=== PATIENT | male | born 1965 | race Hispanic/Latino ===

== ENCOUNTER 2016-11-10 21:38 | Emergency (ER) | payer MEDICARE, MEDICAID ==
[~2016-11-10] VITALS: Ht 170.2 cm; Wt 100.0 kg
[~2016-11-10 21:38] MED LIST: AMT50T PO; ASPI325T32 PO; ATEN25TA PO; INSU100I13 SUBQ; INSU100I18 SUBQ; LISI-567 PO; OMEP20TA86 PO
[2016-11-10 21:41] VITALS: BP 154/87; PULSE 74; RESP 16; O2SAT 95
--- NOTE | 2016-11-10 22:02 | DRSVH ---
PROCEDURE: X-RAY CHEST ONE VIEW, PORTABLE ([id number]) INDICATIONS: Syncope TECHNIQUE: One view of the chest was acquired. COMPARISON: [facility], CR, XR CHEST 1VW (PORTABLE), 04/14/2016, 23:15. FINDINGS: Surgical changes and devices: None. Lungs and pleura: No pleural effusions or pneumothorax. Lungs are clear. Mediastinum: Mediastinal contours appear normal. Heart size is normal. Bones and chest wall: No suspicious bony lesions. Overlying soft tissues appear unremarkable. IMPRESSION: No acute process. Dictated by: Perri Figueroa M.D. on 11/10/2016 at 22:00 Approved by: Perri Figueroa M.D. on 11/10/2016 at 22:00
--- NOTE | 2016-11-10 22:20 | ED.REPORT ---
HPI-General Illness Date of Service Nov 10, 2016 ED Provider: Dr. Elian Henry D.O. A 51 year old male with a medical history including hypertension, diabetes, CVAx2, left arm injury with residual weakness, and CAD s/p cardiac stenting presents to the ED via EMS accompanied by his family after a syncopal episode just prior to arrival. The patient was arguing vigorously with his when the episode occurred. EMS found the patient with a BP of 210/108 and a blood glucose level of 300. He currently reports left arm pain, left hand pain, nausea , and headache. Family states that he landed on his left shoulder and left hand. The patient denies chest pain, vomiting, diarrhea, or other symptoms. The patient speaks Swedish and his son was translating. Nursing Notes Stated Complaint: DIFFICULTY BREATHING Chief Complaint: General Complaint Nursing Notes Reviewed: Yes Allergies: Coded Allergies: No Known Allergies (Verified Allergy, Unknown, 11/10/16) Scheduled Amitriptyline (Amitriptyline) 50 Mg Tab 50 MG PO HS Aspirin (Aspirin) 325 Mg Tablet. 325 MG PO DAILY Atenolol (Atenolol) 25 Mg Tablet 25 MG PO DAILY Insulin Glargine (Lantus U100 Solostar Insulin Pen) 100 Unit/1 Ml Insuln.pen 10 UNIT SUBQ QPM-INSULIN Insulin Lispro (HumaLOG U100 Insulin Pen) 100 Unit/1 Ml Insuln.pen 10 UNIT SUBQ BID-INSULIN Blood Sugar Lispro Correction <151 0 units 151-175 1 unit 176-200 2 units 201-225 3 units 226-250 4 units 251-275 5 units 276-300 6 units 301-325 7 units 326-350 8 units 351-375 9 units 376-400 10 units >400 12 units Check blood sugars before meals and at bedtime. Use correction factor only before meals. Lisinopril (Lisinopril) 20 Mg Tablet 20 MG PO DAILY Omeprazole (Omeprazole) 20 Mg Tablet. 20 MG PO DAILY General Time Seen by MD: 22:19 Chief Complaint Other (Syncope) Hx Obtained From: Patient, Son Arrived By: Ambulance Sudden in Onset?: Yes Onset Occurred: Just prior to arrival Symptom Duration: Since onset Location: : Arm left: Hand left: Head Severity: Current: Moderate Severity: Maximum: Moderate Associated with: Reports: Headache, Nausea, Denies: Fever Pertinent Negative: Relieved by nothing Context Related History: Reports Coronary artery disease, Reports Diabetes mellitus Recent Healthcare: No recent doctor visit Past Medical History Past Medical History Retinal detachment Hemorrhage CAD Left arm residual weakness s/p injury Hypertension Diabetes Hyperlipidemia CVA x2 Past Surgical History Arthroscopic surgery on his right shoulder Repair for retinal detachment Cardiac catheterization Cardiac stent placement Inguinal hernia repair Smoking History Former Smoker Social History Alcohol Use: Denies alcohol use Other Social History: Good social support, , Local resident Ambulatory Status Independent Review of Systems + Hypertension (210/108), hyperglycemia (300) Full Review of Systems Constitutional: Denies: Fever Respiratory: Denies: Non-productive cough, Shortness of breath Cardiovascular: Denies: Chest pain GI: Reports: Nausea, Denies: Diarrhea, Vomiting Musculoskeletal: Reports: Extremity pain (Left arm and left hand) Neurologic: Reports: Headache, Syncope Complete sys rev & neg: except as marked. Physical Exam Vital Signs Vital Signs Date Time Temp Pulse Resp B/P Pulse Ox O2 Delivery O2 Flow Rate FiO2 11/11/16 01:52 36.4 78 20 140/73 95 Room Air 11/11/16 00:34 73 18 148/86 95 Room Air 11/10/16 23:47 75 18 147/81 95 Room Air 11/10/16 22:36 75 16 143/80 96 Room Air 11/10/16 21:41 36.0 74 16 154/87 95 Room Air Initial VS: Reviewed Head / Eyes: Atraumatic, Normocephalic ENT: Conjunctiva normal, No scleral icterus Neck: Supple, Full range of motion Respiratory: Breath sounds normal, Clear to auscultation, No respiratory distress Cardiovascular: Regular rate & rhythm, Heart sounds normal Skin: Warm, Dry, No cyanosis Neurologic: Alert, Oriented, Nonfocal Psychiatric: Mood/affect normal, Behavior normal, Normal thought content General/Constitutional: Awake, Alert Wrist / Hand: Neurologic intact, Vascular intact Left Hand: Positive: Tenderness present... Interpretation & Diagnostics Lab Results Interpretation Result Diagram: 11/10/16222611/10/162226 Test 11/10/16 22:27 11/11/16 01:06 White Blood Count 6.0th/mm3 (3.8-10.1) Red Blood Count 5.18mil/mm3 (4.40-5.80) Hemoglobin 14.3g/dL (13.8-17.2) Hematocrit 43.6% (41.0-50.0) Mean Corpuscular Volume 84.2fL (81-100) Mean Corpuscular Hemoglobin 27.6pg (27.0-35.0) Mean Corpuscular Hemoglobin Concent 32.8% (32.0-37.0) Red Cell Distribution Width 14.0% (12.3-15.4) Platelet Count 266bil/L (150-400) Neutrophils (%) (Auto) 66.2% (40-74) Lymphocytes (%) (Auto) 23.3% (14-46) Monocytes (%) (Auto) 8.0% (4-12) Eosinophils (%) (Auto) 2.0% (0-5) Basophils (%) (Auto) 0.5% (0-3) D-Dimer < 0.5mg/L (<0.50) Hold Urine Received (Received) Sodium Level 131mEq/L (134-144) Potassium Level 4.1mEq/L (3.5-5.2) Chloride Level 95mEq/L (97-108) Carbon Dioxide Level 21mmol/L (18-29) Blood Urea Nitrogen 11mg/dL (6-24) Creatinine 0.61mg/dL (0.76-1.27) Estimat Glomerular Filtration Rate 148mL/min (>59) Glucose Level 517mg/dL (60-99) Calcium Level 8.8mg/dL (8.5-10.1) Magnesium Level 2.1mg/dL (1.6-2.6) Total Bilirubin 0.3mg/dL (0.0-1.2) Aspartate Amino Transf (AST/SGOT) 22U/L (0-50) Alanine Aminotransferase (ALT/SGPT) 17U/L (0-44) Alkaline Phosphatase 101U/L (25-150) Total Protein 7.1g/dL (6.4-8.4) Albumin 3.8g/dL (3.4-5.0) Hold [place] Top Tube Received (Received) Troponin T 0.010ug/L (0.0-0.011) ECG Interpretation ECG Interpretation: Sinus rhythm rate 76 LVH with repolarization abnormality Unchanged from prior 04/14/2016 Time: 21:50 Interpreted by: ED physician X-Ray Chest Interpretation Chest Xray Interpretation: IMPRESSION: No acute process. Dictated by: Perri Figueroa M.D. on 11/10/2016 at 22:00 View: Portable Interpretation / Wet Read by: Interpret - Radiologist X-Ray Interpretation Xray Interpretation: No fracture Study Performed: 2 View X-Ray Ordered: Shoulder left Interpretation / Wet Read by: Wet read ED physician Xray Interpretation: No fracture Study Performed: Fingers Left 2 View Interpretation / Wet Read by: Wet read ED physician Xray Interpretation: No fracture Study Performed: 2 View X-Ray Ordered: Humerus left Interpretation / Wet Read by: Wet read ED physician Xray Interpretation: No fracture Study Performed: 2 View Forearm Left Interpretation / Wet Read by: Wet read ED physician Xray Interpretation: No fracture Study Performed: 3 View X-Ray Ordered: Hand left Interpretation / Wet Read by: Wet read ED physician CT Head Interpretation CONCLUSION: No acute intracranial abnormality. Transmitted to ED by Carlos Saavedra M.D. at 11/10/2016 - 11:27:47 PM PST Study: Head CT no contrast Interpretation / Wet Read by: Interpret - Radiologist Re-Eval/Medical Decision Med Decision/Clinical Course EKG looks similar to prior. He has LVH with strain pattern. Serial troponins were negative. D-dimer is negative. Head scan was normal. He was observed for roughly 4 hours and the onset of syncope. He remained in sinus rhythm. I talked to him and his sons about being admitted or going home. He is feeling much better like to be discharged home. I suspect that the syncope is related to hyperventilation him being yelling with his . Either way MIs been ruled out based and troponins. Electrolytes look good. Blood sugars much better. D- dimer is negative. Head scan is normal. He has got some musculoskeletal complaints but these seem to be chronic. No new fractures are seen. I will immobilize his left arm in an immobilizer and jesus tape the fingers that he landed on cell. Have close outpatient follow-up. Source of Hx: Old records Time of Eval: 01:30 Patient Status: Condition improved Re-Evaluation/Progress Note: Discussed with patient CT, x-ray, and lab results, diagnosis, and plan for discharge. Follow-up and return to the ER instructions given. Patient agrees with plan for care and all questions were addressed. Counseled Regarding: Diagnosis, Lab results, Need for follow-up, When/why to return to ED Discharge & Departure Primary Impression: Syncope Syncope type: unspecified Qualified Code: R55 - Syncope and collapse Additional Impressions: Shoulder injury Encounter type: initial encounter Laterality: left Qualified Code: S49.92XA - Unspecified injury of left shoulder and upper arm, initial encounter Finger injury Encounter type: initial encounter Laterality: left Qualified Code: S69.92XA - Unspecified injury of left wrist, hand and finger(s), initial encounter Disposition: Home Discharge Condition All VS Reviewed: Yes Condition: Improved Patient Instructions: Contusion (ED), Syncope (ED) Additional Instructions: The CT scan of your brain was reassuring. No acute hemorrhage from hitting your head. Your EKG looks like it always does. It is not normal but no signs of any new heart injury. Your serial heart blood tests were normal. Your laboratory work showed high blood sugar and this was treated with fluids and insulin. I suspect that you passed out due to hyperventilation from the argument you were having with your . Do your best to stay calm. Stay on all your medications. Call your doctor tomorrow morning for a follow-up. I did not appreciate an obvious fracture on your x-rays however I would like you to wear the shoulder immobilizer and keep her fingers jesus taped until you are seen in follow-up. If the pain persists you will need to have follow-up imaging. Return if any problems or any worsening symptoms. Referrals: Shelton Arrieta DC (PCP) Scribe Attestation Portions of this note were transcribed by Ivonne Hampton. I, Dr. Henry, personally performed the history, physical exam, and medical decision-making; I reviewed and confirmed the accuracy of the information in the transcribed note. Signed by: Rosa Maria Winkler, 11/11/2016, 02:20 copies to: Shelton Arrieta DC, Todd P DO Nov 10, 2016 22:20 IVONNE HAMPTON Nov 10, 2016 22:45
[2016-11-10 22:36] VITALS: BP 143/80; PULSE 75; RESP 16; O2SAT 96
[2016-11-10 22:43] LABS: BASOPHILS % (AUTO) 0.5 % (0-3); Mean Corpuscular Hemoglobin 27.6 pg (27.0-35.0); Mean Corpuscular Volume 84.2 fL (81-100); NEUTROPHILS % (AUTO) 66.2 % (40-74); Platelet Count 266 bil/L (150-400)
[2016-11-10 23:03] LABS: TROPONIN T 0.01 ug/L (0.0-0.011)
[2016-11-10] MEDS: fentaNYL-PF 50 mCg/mL 2 mL Inj IVPUSH PRN ×2 (23:03→23:46)
[2016-11-10 23:15] LABS: Magnesium 2.1 mg/dL (1.6-2.6)
[2016-11-10] MEDS ORDERED: 0.9% Sodium Chloride 1,000 ML IV ONE (23:30)
[2016-11-10] MEDS ORDERED: Insulin Human REGular-Omnicell 100 Unit/mL IV ONE (23:35)
[2016-11-10 23:47] VITALS: BP 147/81; PULSE 75; RESP 18; O2SAT 95
[2016-11-11 00:34] VITALS: BP 148/86; PULSE 73; RESP 18; O2SAT 95
[2016-11-11 01:52] VITALS: BP 140/73; PULSE 78; RESP 20; O2SAT 95
--- NOTE | 2016-11-11 08:55 | DRSVH ---
PROCEDURE: CT BRAIN WITHOUT CONTRAST ([id number]) INDICATIONS: syncope, headache TECHNIQUE: Noncontrast 4.5 mm thick angled axial sections acquired from the foramen magnum to the vertex, with c oronal reformats. COMPARISON: [facility], CT, CT BRAIN WO CON, 04/15/2016, 1:12. [facility], C T, CT BRAIN WO CON, 12/17/2015, 14:58. [facility], MR, BRAIN W&W/O CONTRAST, 11/28/2014, 1 9:13. FINDINGS: Image quality: Excellent. CSF spaces: Basal cisterns are patent. No extra-axial fluid collections. The ventricles are symmet lane in size and shape. Brain: No intracranial bleeds or masses. There is cerebral volume loss for age, with resultant vent ricular and sulcal prominence. There are periventricular and deep white matter chronic small vessel ischemic changes. Old left caudate head lacunar infarct is stable compared to prior examination. Righ t basal ganglia lacunar infarct versus prominent perivascular spaces stable. There is intracranial in ternal carotid artery and vertebral artery atherosclerosis. Skull and face: Calvarium and visualized facial bones appear intact, without suspicious lesions. Sinuses: Visualized sinuses and mastoids are clear. IMPRESSION: No acute intracranial disease process. Dictated by: Silvia Jackson MD, PhD on 11/11/2016 at 8:52 Approved by: Silvia Jackson MD, PhD on 11/11/2016 at 8:54
--- NOTE | 2016-11-11 09:17 | DRSVH ---
PROCEDURE: X-RAY LEFT SHOULDER, MINIMUM TWO VIEWS ([id number]) INDICATIONS: Pain/fall left upper limb TECHNIQUE: 3 views of the shoulder were acquired. COMPARISON: None. FINDINGS: Bones: No fractures or dislocations. No suspicious bony lesions. Visualized ribs appear intact. M ild joint narrowing with periarticular osteophyte formation Soft tissues: No suspicious soft tissue calcifications. IMPRESSION: No displaced fracture seen. If there is continued pain, followup exam or additional sun ging such as MRI or CT could be performed for further assessment. Dictated by: Michael Arauz RRA Interpreted: Silvia Jackson MD on 11/11/2016 at 9:17 Transcribed by: RUBÉN on 11/11/2016 at 9:17 Approved by: Silvia Jackson MD, PhD on 11/11/2016 at 17:01
--- NOTE | 2016-11-11 09:18 | DRSVH ---
PROCEDURE: X-RAY FINGERS, TWO VIEWS INDICATIONS: Pain/fall 4th digit injury TECHNIQUE: AP hand, 2 views of the fourth finger(s) acquired. COMPARISON: None. FINDINGS: Bones: No fractures or dislocations. No suspicious bony lesions. Mild joint narrowing with periart icular osteophyte formation Soft tissues: No suspicious soft tissue calcifications. Vascular calcifications indicate atheroscle rosis. IMPRESSION: No displaced fracture seen. If there is continued pain, followup exam or additional sun ging such as MRI or CT could be performed for further assessment. Dictated by: Michael Arauz RRA Interpreted: Silvia Jackson MD on 11/11/2016 at 9:17 Transcribed by: RUBÉN on 11/11/2016 at 9:18 Approved by: Silvia Jackson MD, PhD on 11/11/2016 at 17:01
--- NOTE | 2016-11-11 09:19 | DRSVH ---
PROCEDURE: X-RAY LEFT FOREARM, TWO VIEWS ([id number]) INDICATIONS: syncope, left limb injury TECHNIQUE: 2 views of the forearm were acquired. COMPARISON: None. FINDINGS: Bones: No fractures or dislocations. No suspicious bony lesions. Soft tissues: No suspicious soft tissue calcifications or masses. Vascular calcifications indicate atherosclerosis. IMPRESSION: No displaced fracture seen. If there is continued pain, followup exam or additional sun ging such as MRI or CT could be performed for further assessment. Dictated by: Michael Arauz [facility] Interpreted: Silvia Jackson MD on 11/11/2016 at 9:19 Transcribed by: RUBÉN on 11/11/2016 at 9:19 Approved by: Silvia Jackson MD, PhD on 11/11/2016 at 17:01
--- NOTE | 2016-11-11 09:19 | DRSVH ---
PROCEDURE: X-RAY LEFT HUMERUS, MINIMUM TWO VIEWS ([id number]) INDICATIONS: syncope, left limb injury TECHNIQUE: 2 views of the humerus were acquired. COMPARISON: None. FINDINGS: Bones: No fractures or dislocations. No suspicious bony lesions. Mild joint narrowing with periart icular osteophyte formation. Soft tissues: No suspicious soft tissue calcifications. IMPRESSION: No displaced fracture seen. If there is continued pain, followup exam or additional sun ging such as MRI or CT could be performed for further assessment. Dictated by: Michael Arauz [facility] Interpreted: Silvia Jackson MD on 11/11/2016 at 9:18 Transcribed by: RUBÉN on 11/11/2016 at 9:19 Approved by: Silvia Jackson MD, PhD on 11/11/2016 at 17:01
--- NOTE | 2016-11-11 09:20 | DRSVH ---
PROCEDURE: X-RAY LEFT HAND, MINIMUM THREE VIEWS ([id number]) INDICATIONS: syncope, left limb injury TECHNIQUE: 3 views of the hand(s) acquired. COMPARISON: None. FINDINGS: Bones: No fractures or dislocations. Carpal bones are normally aligned. No suspicious bony lesions . Soft tissues: No suspicious soft tissue calcifications. Vascular calcifications indicate atheroscler osis. IMPRESSION: No displaced fracture seen. If there is continued pain, followup exam or additional sun ging such as MRI or CT could be performed for further assessment. Dictated by: Michael Arauz [facility] Interpreted: Silvia Jackson MD on 11/11/2016 at 9:19 Transcribed by: RUBÉN on 11/11/2016 at 9:20 Approved by: Silvia Jackson MD, PhD on 11/11/2016 at 17:01
== END 2016-11-11 02:13 | disposition home or self-care (01) ==
LOC: SED 21:38
DX: R55 Syncope and collapse (principal); S49.92XA Unspecified injury of left shoulder and upper arm, initial encounter; S69.92XA Unspecified injury of left wrist, hand and finger(s), initial encounter; W19.XXXA Unspecified fall, initial encounter; Y92.009 Unspecified place in unspecified non-institutional (private) residence as the place of occurrence of the external cause; Y92.89 Other specified places as the place of occurrence of the external cause; Y99.8 Other external cause status; I10 Essential (primary) hypertension; E11.65 Type 2 diabetes mellitus with hyperglycemia; M62.81 Muscle weakness (generalized); I25.10 Atherosclerotic heart disease of native coronary artery without angina pectoris; Z95.818 Presence of other cardiac implants and grafts; Z87.828 Personal history of other (healed) physical injury and trauma; Z86.73 Personal history of transient ischemic attack (TIA), and cerebral infarction without residual deficits; Z87.891 Personal history of nicotine dependence; Z79.82 Long term (current) use of aspirin; Z79.4 Long term (current) use of insulin
CPT/HCPCS: 36415; 70450; 71010; 73030; 73060; 73090; 73130; 73140; 80053; 82948; 83735; 84484; 85025; 85379; 93005; 96361; 96374; 96375; 96376; 99285; J1815; J3010; J7030

== ENCOUNTER 2017-02-04 21:17 | Emergency (ER) | payer MEDICARE, MEDICAID ==
[~2017-02-04] VITALS: Ht 172.7 cm; Wt 90.9 kg
[2017-02-04 21:26] VITALS: BP 123/81; PULSE 75; RESP 24; O2SAT 97
--- NOTE | 2017-02-04 21:40 | ED.REPORT ---
HPI-General Illness Date of Service Feb 04, 2017 ED Provider: Tor Ling MD Pt is a 52 year old male with a history of HTN, DM, CVA x2, CAD, and hyperlipidemia who presents to the ED after drinking too much in [place] 4 days ago. He c/o headache, intermittent left-sided chest pain lasting up to 6 hours at a time, and bilateral back pain onset 5 days ago. The pt reports that his face has felt swollen for the past 4 days. He reports decreased urinary frequency, unusual urine color, dizziness, nausea with eating, and lightheadedness. He denies dysuria, LOC, SOB, vomiting, fever, and tremors. Pt denies recent medication changes. He reports that he is still on lisinopril for his HTN. He does not drink on a daily basis and does not go through withdrawal symptoms when he doesn't drink. His blood sugar has been around 220 lately. Nursing Notes Stated Complaint: HIGH BLOOD PRESSURE,HEADACHE,CHEST PAIN Chief Complaint: Male Abdominal Pain Nursing Notes Reviewed: Yes ([employer] not reconciled) Allergies: Coded Allergies: No Known Allergies (Verified Allergy, Unknown, 02/04/17) Scheduled Amitriptyline (Amitriptyline) 50 Mg Tab 50 MG PO HS Aspirin (Aspirin) 325 Mg Tablet. 325 MG PO DAILY Atenolol (Atenolol) 25 Mg Tablet 25 MG PO DAILY Insulin Glargine (Lantus U100 Solostar Insulin Pen) 100 Unit/1 Ml Insuln.pen 10 UNIT SUBQ QPM-INSULIN Insulin Lispro (HumaLOG U100 Insulin Pen) 100 Unit/1 Ml Insuln.pen 10 UNIT SUBQ BID-INSULIN Blood Sugar Lispro Correction <151 0 units 151-175 1 unit 176-200 2 units 201-225 3 units 226-250 4 units 251-275 5 units 276-300 6 units 301-325 7 units 326-350 8 units 351-375 9 units 376-400 10 units >400 12 units Check blood sugars before meals and at bedtime. Use correction factor only before meals. Lisinopril (Lisinopril) 20 Mg Tablet 20 MG PO DAILY Omeprazole (Omeprazole) 20 Mg Tablet.dr 20 MG PO DAILY General Time Seen by MD: 21:39 Chief Complaint Multip medical complaints, Other Hx Obtained From: Patient Arrived By: Walk-in Sudden in Onset?: No Onset Occurred: 5 days ago Symptom Duration: Since onset Location: : Back: Chest Quality: Painful Severity: Current: Moderate Severity: Maximum: Moderate Recent Healthcare: Recent doctor visit Similar Sx Previous: No Past Medical History Past Medical History Retinal detachment Hemorrhage CAD Left arm residual weakness s/p injury Hypertension Diabetes Hyperlipidemia CVA x2 Past Surgical History Arthroscopic surgery on his right shoulder Repair for retinal detachment Cardiac catheterization Cardiac stent placement Inguinal hernia repair Smoking History Former Smoker Social History Alcohol Use: Denies alcohol use Other Social History: Good social support, , Local resident Ambulatory Status Independent Review of Systems +facial swelling Full Review of Systems Constitutional: Denies: Chills, Fever Respiratory: Denies: Shortness of breath Cardiovascular: Reports: Chest pain GI: Reports: Nausea, Denies: Abdominal pain, Vomiting Male: Reports Flank pain, Reports Urination decreased Musculoskeletal: Reports: Back pain, Lumbar pain Neurologic: Reports: Headache, Lightheaded, Denies: Seizure, Shaking, Syncope Complete sys rev & neg: except as marked. Physical Exam Vital Signs Vital Signs Date Time Temp Pulse Resp B/P Pulse Ox O2 Delivery O2 Flow Rate FiO2 02/04/17 21:43 73 15 135/83 95 Room Air 02/04/17 21:26 36.6 75 24 123/81 97 Room Air Initial VS: Reviewed, Vital signs normal (nl BP) ENT: Mucous membranes moist, Conjunctiva normal, No scleral icterus Neck: Supple, Full range of motion Respiratory: Breath sounds normal, Clear to auscultation, No respiratory distress Cardiovascular: Regular rate & rhythm, Heart sounds normal, Intact distal pulses Abdomen / GI: Soft, Non-tender Extremities: Vascular intact, Neuro intact Skin: Warm, Dry, No cyanosis Neurologic: Alert, Oriented, Nonfocal Psychiatric: Mood/affect normal, Behavior normal General/Constitutional: Awake, Alert, No acute distress, Cooperative, Not toxic appearing Head / Eyes: Atraumatic, Normocephalic, PERRL No visible facial swelling Back: Atraumatic, Full range of motion Interpretation & Diagnostics Lab Results Interpretation Result Diagram: 02/04/17195002/04/171950 Test 02/04/17 19:51 White Blood Count 5.5th/mm3 (3.8-10.1) Red Blood Count 4.92mil/mm3 (4.40-5.80) Hemoglobin 13.9g/dL (13.8-17.2) Hematocrit 42.0% (41.0-50.0) Mean Corpuscular Volume 85.4fL (81-100) Mean Corpuscular Hemoglobin 28.3pg (27.0-35.0) Mean Corpuscular Hemoglobin Concent 33.1% (32.0-37.0) Red Cell Distribution Width 14.0% (12.3-15.4) Platelet Count 239bil/L (150-400) Neutrophils (%) (Auto) 68.1% (40-74) Lymphocytes (%) (Auto) 22.7% (14-46) Monocytes (%) (Auto) 7.3% (4-12) Eosinophils (%) (Auto) 1.5% (0-5) Basophils (%) (Auto) 0.2% (0-3) Urine Color Yellow (YELLOW) Urine Appearance Clear (CLEAR,HAZY) Urine pH 6.0 (5.0-8.0) Urine Specific [place] 1.010 (1.003-1.035) Urine Protein Negativemg/dL (NEG,TRACE) Urine Glucose (UA) >1000mg/dL (NEGATIVE) Urine Ketones Negativemg/dL (NEGATIVE) Urine Occult Blood Negative (NEGATIVE) Urine Nitrite Negative (NEGATIVE) Urine Bilirubin Negative (NEGATIVE) Urine Urobilinogen 1.0mg/dL (NORMAL) Urine Leukocyte Esterase Negative (NEGATIVE) Urine RBC 0-2/hpf (0-2) Urine WBC 0-5/hpf (0-5) Urine Epithelial Cells Occasional/hpf (NONE-MOD) Urine Crystals None seen (NONE SEEN) Urine Bacteria Few/hpf (NONE-FEW) Urine Hyaline Casts None/lpf (NONE) Urine Granular Casts None seen (NONE SEEN) Urine Waxy Casts None seen (NONE SEEN) Urine Red Blood Cell Casts None seen (NONE SEEN) Urine White Blood Cell Casts None seen (NONE SEEN) Urine Mucus Present (None Seen) Urine Trichomonas None seen (NONE SEEN) Urine Yeast None (NONE SEEN) Urinalysis Comment None Urine Culture Reflexed Not indicated Sodium Level 137mEq/L (134-144) Potassium Level 3.3mEq/L (3.5-5.2) Chloride Level 99mEq/L (97-108) Carbon Dioxide Level 24mmol/L (18-29) Blood Urea Nitrogen 16mg/dL (6-24) Creatinine 0.65mg/dL (0.76-1.27) Estimat Glomerular Filtration Rate 137mL/min (>59) Glucose Level 171mg/dL (60-99) Calcium Level 8.4mg/dL (8.5-10.1) Total Bilirubin 0.3mg/dL (0.0-1.2) Aspartate Amino Transf (AST/SGOT) 45U/L (0-50) Alanine Aminotransferase (ALT/SGPT) 55U/L (0-44) Alkaline Phosphatase 90U/L (25-150) Troponin T 0.010ug/L (0.0-0.011) Total Protein 6.9g/dL (6.4-8.4) Albumin 3.6g/dL (3.4-5.0) Lipase 12U/L (13-60) Lab Results Interpretation: CBC normal CMP marginal hypokalemia Troponin negative (in the setting of persistent prolonged symptoms the great 8 hours at a time daily over the past several days I am not finding evidence of a cardiac etiology or coronary syndrome) ECG Interpretation ECG Interpretation: Sinus rhythm rate 74 LVH with mild strain Repol abnormalities most prounced in I and AvL with T wave inversions Unchanged from November 2016 Time: 22:06 Interpreted by: ED physician Normal ECG Interpretation: No acute ischemic changes Re-Eval/Medical Decision Med Decision/Clinical Course This is a 52-year-old diabetic male returns from [place] reports he went on quite a bit in and drank today, returned a few days ago and feels lousy. He thinks his face is a little swollen, his urine output is decreased and is concerned about his kidneys. The chart talks about high blood pressure, reports he just has a history of high blood pressure-he did not actually measure any high blood pressure, and he is normotensive here. He has had no fevers, or additional complaints and some atypical sharp chest discomfort that is nonexertional and gone on off-and-on for over a month. It is not Present in the emergency department. He appears well. I do not appreciate any angioedema of the face, I do not appreciate overt external signs of renal failure or anasarca. His lungs are clear, heart tones normal, M soft nontender Is without edema. IV was placing his hydrated. Labs are normal, he has no evidence of renal failure or other overt pathology. He describes given his alcohol intake possible hangover effect, and his symptoms completely resolved with hydration. He is reassured. Discharged in good condition. Return precautions reviewed. He is discharged in good condition. Source of Hx: Old records Time of Eval: 23:13 Patient Status: Condition improved Re-Evaluation/Progress Note: Pt rechecked. Informed pt of plan for discharge. Pt understands and agrees with plan for discharge. F/U instructions and RTER warnings given. All questions addressed. Differential Diagnosis: Positive: Diabetes mellitus, Negative: Abdominal pain, Acute coronary syndrome, Allergies, Drug dependence , Laceration, Malingering, Neutropenia, Otitis media, Pneumonia, Seizure disorder Counseled Regarding: Diagnosis, Lab results, Need for follow-up, When/why to return to ED Discharge & Departure Primary Impression: Hangover effect Complication of substance-induced condition: uncomplicated Qualified Code: F10.120 - Alcohol abuse with intoxication, uncomplicated Disposition: Home Discharge Condition All VS Reviewed: Yes Condition: Stable Additional Instructions: 1. Your blood tests were normal - there were no findings of kidney injury or failure. 2. Stay hydrated - drink plenty of water. 3. Continue your regular medications. 4. Follow up with [facility] as needed. 5. Return if new or worsening symptoms. 1. las pruebas de link maryan normales - no haba resultados de lesin renal o yara. 2. Mantngase hidratado, beber janie agua. 3. Siga tianna medicamentos regulares. 4. seguimiento con [facility] segn sea necesario. 5. retorno si nueva o empeoramiento de los sntomas. Referrals: Shelton Arrieta DC (PCP) Scribe Attestation Portions of this note were transcribed by Daljit Hui and Essence Pathak. I, Dr. Ling personally performed the history, physical exam and medical decision -making; I reviewed and confirmed the accuracy of the information in the transcribed note. Signed by: Daljit Hui and Essence Pathak, Scribe, 02/04/17 and 22:50. copies to: Shelton Arrieta DC, Matthew F MD Feb 04, 2017 21:40 Essence Polanco Feb 04, 2017 21:49 DALJIT HUI Feb 04, 2017 22:07
[2017-02-04 21:43] VITALS: BP 135/83; PULSE 73; RESP 15; O2SAT 95
[2017-02-04] MEDS ORDERED: Ondansetron 2 mg/mL 2 mL Inj IVPUSH ONE (21:55)
[2017-02-04] MEDS ORDERED: 0.9% Sodium Chloride 1,000 ML IV ONE (21:55)
[2017-02-04 22:03] LABS: BASOPHILS % (AUTO) 0.2 % (0-3); EOSINOPHILS % (AUTO) 1.5 % (0-5); MONOCYTES % (AUTO) 7.3 % (4-12); Mean Corpuscular Hemoglobin 28.3 pg (27.0-35.0); Mean Corpuscular Volume 85.4 fL (81-100); NEUTROPHILS % (AUTO) 68.1 % (40-74); Platelet Count 239 bil/L (150-400)
[2017-02-04 22:16] LABS: APPEARANCE,URINE CLEAR (CLEAR,HAZY); COLOR,URINE YELLOW (YELLOW); OCCULT BLOOD,URINE NEGATIVE (NEGATIVE)
[2017-02-04 22:34] LABS: TROPONIN T 0.01 ug/L (0.0-0.011)
[2017-02-04] MEDS ORDERED: Potassium Chloride 20 mEq SR Tablet PO ONE (22:55)
[2017-02-04 23:51] VITALS: BP 132/73; PULSE 72; RESP 14; O2SAT 95
== END 2017-02-04 23:50 | disposition home or self-care (01) ==
LOC: SED 21:17
DX: F10.120 Alcohol abuse with intoxication, uncomplicated (principal); I10 Essential (primary) hypertension; I25.10 Atherosclerotic heart disease of native coronary artery without angina pectoris; E78.5 Hyperlipidemia, unspecified; Z86.73 Personal history of transient ischemic attack (TIA), and cerebral infarction without residual deficits; Z87.891 Personal history of nicotine dependence; Z79.4 Long term (current) use of insulin; Z79.82 Long term (current) use of aspirin; Z79.899 Other long term (current) drug therapy
CPT/HCPCS: 36415; 80053; 81000; 83690; 84484; 85025; 93005; 96361; 96374; 99285; J2405; J7030